=== PATIENT | male | born 1990 | race Caucasian/White ===

== ENCOUNTER 2017-04-30 11:39 | Emergency (ER) | payer MEDICAID, OTHER ==
[2017-04-30 12:29] LABS: % IMMATURE GRANULYOCYTES 0.4 % (0.0-1.1); ABSOLUTE IMMATURE GRANULOCYTES 0.06 10^3/uL (0.00-0.10); ADD DIFF? NO; ADD MORPH? NO; ADD SCAN? NO; ATYPICAL LYMPHOCYTE FLAG 0 (0-99); FRAGMENT RBC FLAG 0 (0-99); HEMATOCRIT 41.4 % (40.0-51.0); LEFT SHIFT FLG 0 (0-99); LIPEMIA HEMOLYSIS FLAG 90 (0-99); MEAN CELL HEMOGLOBIN 30.8 pg (27.9-34.1); MEAN CELL HEMOGLOBIN CONCENTR. 33.8 g/dL (32.4-36.7); MEAN CELL VOLUME 91.2 fL (81.5-99.8); MEAN PLATELET VOLUME 9.1 fL (8.7-11.7); PLATELET CLUMPS FLAG 10 (0-99); PLATELET COUNT 313 10^3/uL (150-400); RED BLOOD CELL COUNT 4.54 10^6/uL (4.40-6.38); RED CELL DISTRIBUTION WIDTH 12.7 % (11.5-15.2)
[2017-04-30 12:41] LABS: ANION GAP 15 mEq/L (8-16); CALCIUM 9.4 mg/dL (8.5-10.4); CARBON DIOXIDE 22 mEq/l (22-31); CHLORIDE 104 mEq/L (97-110); CREATININE 0.9 mg/dL (0.7-1.3); GLOMERULAR FILTRATION RATE > 60; GLUCOSE 82 mg/dL (70-100); POTASSIUM 3.6 mEq/L (3.5-5.2); SODIUM 141 mEq/L (134-144)
[2017-04-30 13:01] LABS: PHENCYCLIDINE URINE BCH < 6 ng/ml (NEGATIVE); PHENCYCLIDINE URINE BCH NEGATIVE (NEGATIVE); TETRAHYDROCANNABINOL URINE 23 ng/mL (NEGATIVE); TETRAHYDROCANNABINOL URINE NEGATIVE (NEGATIVE)
--- NOTE | 2017-04-30 16:49 | EDPHY ---
H & P Stated Complaint: M1, Hallucinations - Personal History Current Tetanus/Diphtheria Vaccine: Unsure - Medical/Surgical History Other PMH: denies Time Seen by Provider: 04/30/17 12:06 HPI/ROS: CHIEF COMPLAINT: Hallucinations, gravely disabled HISTORY OF PRESENT ILLNESS: This is a 27-year-old male who presents on a police M1 mental health hold. History is that the police have been called to evaluate the patient 3 times today. Each time they have found him somewhat confused, wandering in traffic, shortness, with no shoes, and seeming to respond to hallucinations. He was placed on a mental health hold for being gravely disabled and was brought to the emergency department. On my history the patient states that he is here only because he has blisters on his feet. He tells me that he has been incarcerated. He reports he has a piece of paper that he needs to take to the mental health department in order to have further care. His speech is quite tangential and he is not able to give a coherent history. He denies any pain except for pain in his feet. He denies a history of mental health disease. He denies medication use. He denies drug use. He tells me that the bottom of his feet hurt because there are batteries there. REVIEW OF SYSTEMS: Limited secondary to the patient's clinical condition and altered mental status. PAST MEDICAL HISTORY: Patient denies. SOCIAL HISTORY: Homeless VITAL SIGNS: see nurse's notes. GENERAL: Disheveled, alert, oriented to person and place. HEENT: Normal, no trauma. LUÍS, pupils are 5 mm and reactive. No icterus. No nystagmus. Dry mucous membranes. Neck is supple. LUNGS: Clear to auscultation bilaterally, no wheezes, rhonchi or rales. CARDIAC: Regular rate and rhythm, no rubs, murmurs or gallops. ABDOMEN: Soft, nontender, nondistended, bowel sounds normal. BACK: No CVA tenderness. No vertebral tenderness. EXTREMITIES: Soles of the feet are caked with dirt. Blisters are present on the soles of the feet. No signs of cellulitis. NEURO: Alert and oriented, grossly nonfocal SKIN: Diffuse erythroderma present on the left side of the chest and left arm. Appears to be sun burn. (Ernestina Ibrahim) Constitutional: Initial Vital Signs Temperature (C) 36.8 C 04/30/17 11:43 Heart Rate 110 H 04/30/17 11:43 Respiratory Rate 18 04/30/17 11:43 Blood Pressure 123/79 H 04/30/17 11:43 O2 Sat (%) 95 04/30/17 11:43 O2 Delivery Mode Room Air Allergies/Adverse Reactions: No Known Allergies Allergy (Unverified 02/27/10 14:22) Home Medications: Medication Instructions Recorded Wellbutrin 02/27/10 Medical Decision Making ED Course/Re-evaluation: Presenting on a please M1 hold. Patient is gravely disabled, seems to be responding to external stimuli, disheveled, homeless. He denies a prior history of mental health disorders. Patient's medical screening exam is unremarkable. He has no illicit drugs in his urinary tox screen. Patient is clear for further psychiatric evaluation. Care was assumed by Dr. Trevor Castellon at 4:30 p.m. pending psychiatric evaluation. Differential diagnoses for the patient's symptom complex was considered including but not limited to drug or alcohol abuse, primary psychiatric illness , schizophrenia, bipolar disorder, electrolyte abnormalities, head trauma.. (Ernestina Ibrahim) 1630 care assumed by me pending mental health evaluation. 1800 patient has been evaluated by [facility] environmental services manager. Patient is gravely disabled and will require placement. [address] patient signed out to Dr. Ann pending placement. No issues during my care. (Reynaldo Castellon) 7:00 a.m.- The patient has been stable throughout my shift. He is awaiting placement. The case will be signed out to Dr. Pennington at change of shift. (Catalina Ann) 7:30 a.m. patient is stable. Eating breakfast. Awaiting placement Patient has remained stable. He is awaiting placement (Edmund Pennington) Care Turn Over: Dr. Mabry at 3:00 p.m. (Edmund Pennington) - Data Points Laboratory Results: Laboratory Results 04/30/17 12:05 04/30/17 12:05 Departure - Departure Referrals: NONE *PRIMARY CARE P,. [Primary Care Provider] - As per Instructions
[2017-04-30 23:10] VITALS: RESP 16
[2017-05-01 20:44] VITALS: TEMP 98.4; O2SAT 96
[2017-05-01 21:06] VITALS: BP 130/70; PULSE 90
== END 2017-05-01 21:06 ==
DX: F29 Unspecified psychosis not due to a substance or known physiological condition (principal)
CPT/HCPCS: 80307; G0480

== ENCOUNTER 2018-12-20 14:37 | Emergency (ER) | payer MEDICAID ==
--- NOTE | 2018-12-20 14:42 | EDPHY ---
H & P Time Seen by Provider: 12/20/18 14:56 HPI/ROS: HPI CHIEF COMPLAINT: Anxiety attack HISTORY OF PRESENT ILLNESS: Patient is a 28-year-old male, history of schizoaffective disorder, bipolar disorder, presents emergency room acute anxiety attack. Patient states he became very anxious started hyperventilating , vomited once. Denies any chest pain or shortness of breath. He has since somewhat resolved, upon arrival feeling better. The patient states he has been compliant with his psychiatric medications, denies want hurt himself or anybody else. Denies drugs alcohol tobacco. Past Medical History: Schizoaffective disorder, bipolar disorder, anxiety Past Surgical History: No recent surgical history Social History: Homeless. Family History: Noncontributory ROS REVIEW OF SYSTEMS: 10 Systems were reviewed and negative with the exception of the elements mentioned in the history of present illness. Exam Constitutional anxious, triage nursing summary reviewed, vital signs reviewed, awake/alert. Eyes normal conjunctivae and sclera, EOMI, PERRLA. HENT normal inspection, atraumatic, moist mucus membranes, no epistaxis, neck supple/ no meningismus, no raccoon eyes. Respiratory clear to auscultation bilaterally, normal breath sounds, no respiratory distress, no wheezing. Cardiovascular rate normal, regular rhythm, no murmur, no edema, distal pulses normal. Gastrointestinal soft, non-tender, no rebound, no guarding, normal bowel sounds, no distension, no pulsatile mass. Genitourinary no CVA tenderness. Musculoskeletal no midline vertebral tenderness, full range of motion, no calf swelling, no tenderness of extremities, no meningismus, good pulses, neurovascularly intact. Skin pink, warm, & dry, no rash, skin atraumatic. Neurologic awake, alert and oriented x 3, AAOx3, moves all 4 extremities equally, motor intact, sensory intact, CN II-XII intact, normal cerebellar, normal vision, normal speech. Psychiatric anxious, Heme/Lymph/Immune no lymphadenopathy. Differential Diagnosis: Includes but is not limited to in a particular order acute anxiety attack, panic attack, dehydration, electrolyte disturbance Medical Decision Making: Plan for this patient IV establishment IV fluid bolus , check lithium level, basic labs, IV Ativan 0.5 mg and re-evaluate. Re-evaluation: 1702: Patient re-evaluated this time resting comfortably. He feels much better on re-evaluation after IV Ativan. Reports to me his anxiety is greatly improved. He is requesting discharge. He states he wants a cab fare back to where he came from. He also had a full meal here. He is not taking his lithium. I encouraged him to take his lithium. Refrain from smoking, or smoking methamphetamine. Source: Patient - Medical/Surgical History Other PMH: denies Constitutional: Initial Vital Signs Temperature (C) 36.8 C 12/20/18 14:45 Heart Rate 99 12/20/18 14:45 Respiratory Rate 16 12/20/18 14:45 Blood Pressure 112/75 12/20/18 14:45 O2 Sat (%) 95 12/20/18 14:45 O2 Delivery Mode Room Air Allergies/Adverse Reactions: No Known Allergies Allergy (Unverified 02/27/10 14:22) Home Medications: Medication Instructions Recorded Wellbutrin 02/27/10 Depakote 12/20/18 Brimhall Nizhoni Carbonate 12/20/18 Zyprexa 12/20/18 Medical Decision Making - Data Points Laboratory Results: Laboratory Results 12/20/18 15:10 12/20/18 15:10 12/20/18 12/20/18 12/20/18 15:45 15:10 15:10 WBC 11.17 10^3/uL H 10^3/uL (3.80-9.50) RBC 4.64 10^6/uL 10^6/uL (4.40-6.38) Hgb 14.0 g/dL g/dL (13.7-17.5) Hct 41.2 % % (40.0-51.0) MCV 88.8 fL fL (81.5-99.8) MCH 30.2 pg pg (27.9-34.1) MCHC 34.0 g/dL g/dL (32.4-36.7) RDW 12.7 % % (11.5-15.2) Plt Count 232 10^3/uL 10^3/uL (150-400) MPV 9.0 fL fL (8.7-11.7) Neut % (Auto) 79.4 % H % (39.3-74.2) Lymph % (Auto) 11.1 % L % (15.0-45.0) Mccormick % (Auto) 8.4 % % (4.5-13.0) Eos % (Auto) 0.3 % L % (0.6-7.6) Baso % (Auto) 0.4 % % (0.3-1.7) Nucleat RBC Rel Count 0.0 % % (0.0-0.2) Absolute Neuts (auto) 8.86 10^3/uL H 10^3/uL (1.70-6.50) Absolute Lymphs (auto) 1.24 10^3/uL 10^3/uL (1.00-3.00) Absolute Monos (auto) 0.94 10^3/uL H 10^3/uL (0.30-0.80) Absolute Eos (auto) 0.03 10^3/uL 10^3/uL (0.03-0.40) Absolute Basos (auto) 0.05 10^3/uL 10^3/uL (0.02-0.10) Absolute Nucleated RBC 0.00 10^3/uL 10^3/uL (0-0.01) Immature Gran % 0.4 % % (0.0-1.1) Immature Gran # 0.05 10^3/uL 10^3/uL (0.00-0.10) Sodium 138 mEq/L mEq/L (135-145) Potassium 4.2 mEq/L mEq/L (3.5-5.2) Chloride 105 mEq/L mEq/L (97-110) Carbon Dioxide 23 mEq/l mEq/l (22-31) Anion Gap 10 mEq/L mEq/L (6-14) BUN 16 mg/dL mg/dL (7-23) Creatinine 0.9 mg/dL mg/dL (0.7-1.3) Estimated GFR > 60 Glucose 134 mg/dL H mg/dL (70-100) Calcium 9.1 mg/dL mg/dL (8.5-10.4) Urine Opiates Screen NEGATIVE (NEGATIVE) Urine Barbiturates NEGATIVE (NEGATIVE) Ur Phencyclidine Scrn NEGATIVE (NEGATIVE) Ur Amphetamine Screen NEGATIVE (NEGATIVE) U Benzodiazepines Scrn NEGATIVE (NEGATIVE) Br[place]hall Nizhoni 0.3 mEq/L L mEq/L (0.6-1.2) Urine Cocaine Screen NEGATIVE (NEGATIVE) U Marijuana (THC) Screen NON-NEGATIVE H (NEGATIVE) Medications Given: Discontinued Medications Sodium Chloride (Ns) 1,000 mls @ 0 mls/hr IV EDNOW ONE; Wide Open PRN Reason: Protocol Stop: 12/20/18 14:55 Last Admin: 12/20/18 15:15 Dose: 1,000 mls Lorazepam (Ativan Injection) 0.5 mg IVP EDNOW ONE Stop: 12/20/18 14:55 Last Admin: 12/20/18 15:16 Dose: 0.5 mg Departure - Departure Disposition: Home, Routine, Self-Care Clinical Impression: Anxiety attack Condition: Good Instructions: Anxiety (ED) Referrals: Patient,NotPresent [Unknown] - As per Instructions [facility],. [Clinic] - As per Instructions
[2018-12-20] MEDS ORDERED: LORazepam 2 MG/ML INJ IVP ONE (14:54)
[2018-12-20] MEDS ORDERED: NS 1,000 ML IV ONE (14:54)
[2018-12-20 15:25] LABS: PLATELET COUNT 232 10^3/uL (150-400)
[2018-12-20 17:15] VITALS: BP 119/81
--- NOTE | 2018-12-20 19:31 | ASMTCMCOM ---
CM Note CM Note Notes: Requested to assist pt with getting to the [facility]. Spoke w/pt and he states he doesn't have a reserved bed but "is working on it." Pt states he is followed by Velma and [facility] at the [facility]. This CM called [facility] and confirmed pt is allowed to stay there tonight. CM initially set up a Medicaid cab for the pt but it did not arrive in time so that pt would make it to [facility] by 7pm, so this CM canceled the Medicaid cab and set up a cab with a voucher. Pt very pleasant and appreciative. CM available for further assistance if needed. Date Signed: 12/20/2018 07:30 PM Electronically Signed By:Renata Perkins RN
== END 2018-12-20 17:33 | disposition home or self-care (01) ==
LOC: EDBD → EDUNIT#
DX: F41.8 Other specified anxiety disorders (principal); F20.89 Other schizophrenia; E86.9 Volume depletion, unspecified; Z79.899 Other long term (current) drug therapy; Z59.0 Homelessness
CPT/HCPCS: 80305; 96374; J2060

== ENCOUNTER 2018-12-21 10:31 | Emergency (ER) | payer MEDICAID ==
--- NOTE | 2018-12-21 10:37 | EDPHY ---
H & P Source: Patient, RN/MD Exam Limitations: Intoxication - Medical/Surgical History Hx Asthma: No Hx Chronic Respiratory Disease: No Hx Diabetes: No Hx Cardiac Disease: No Hx Renal Disease: No Hx Cirrhosis: No Hx Alcoholism: No Hx HIV/AIDS: No Hx Splenectomy or Spleen Trauma: No Other PMH: denies - Social History Smoking Status: Current some day smoker Time Seen by Provider: 12/21/18 10:37 HPI/ROS: HPI: This is a 28-year-old male who presents with Chief Complaint: Marijuana intoxication, nausea Location: Body Quality: Marijuana intoxication, nausea, vomiting Duration: Unknown Signs and Symptoms: no fever,+ nausea, + vomiting, no hematemesis, no blood in stool, no abdominal bloating, no diarrhea, no back pain, no urinary symptoms, no testicular/groin pain, no indigestion, no chest pain, no shortness of breath Timing: Acute, resolved Severity: Mild Context: Patient is homeless, bipolar schizoaffective disorder [facility] for [facility] and several episodes of vomiting after marijuana use last night. Patient reports that he is compliant with his psychiatric medications. Denies wanting to hurt himself or harm others. He denies hallucinations. Patient is asking for "something to eat" upon arrival to the emergency room. He denies abdominal pain, fever, urinary symptoms, diarrhea. Patient does not remember how he arrived at the [facility]. Patient reports that his psychiatric medications make him "sleepy. "Patient is followed by Alex JIMENEZ at the [facility]. Modifying Factors: None Comment: ROS: A comprehensive 10 system review of systems is otherwise negative aside from elements mentioned in the history of present illness. MEDICAL/SURGICAL/SOCIAL HISTORY: Medical history: Bipolar schizoaffective disorder Surgical history: Denies Social history: Current every day smoker. Homeless. Family history noncontributory. CONSTITUTIONAL: Flat affect, answers questions, untidy, adult white male, awake and alert, no obvious distress HEENT: Atraumatic and normocephalic, PERRL, EOMI. Nares patent; no rhinorrhea; no nasal mucosal edema. Tympanic membranes clear. Oropharynx clear, no exudate and moist pink mucosa. Airway patent. No lymphadenopathy. No meningismus. Cardiovascular: Normal S1/S2, regular rate, regular rhythm, without murmur rub or gallop. PULMONARY/CHEST: Symmetrical and nontender. Clear to auscultation bilaterally. Good air movement. No accessory muscle usage. ABDOMEN: Soft, nondistended, nontender, no rebound, no guarding, no peritoneal signs, no masses or organomegaly. No CVAT. EXTREMITIES: 2/2 pulses, strength 5/5, no deformities, no clubbing, no cyanosis or edema. NEUROLOGICAL: no focal neuro deficits. GCS 15. SKIN: Warm and dry, no erythema. no rash. Good capillary refill. PSYCH: Good eye contact, no flight of ideas, organized thought process, fair insight and judgment, no auditory hallucinations, no visual hallucinations, no suicidal ideation with a plan, no homicidal ideation, no paranoia (Mae Packer) Constitutional: Initial Vital Signs Temperature (C) 36.8 C 12/21/18 10:35 Heart Rate 82 12/21/18 10:35 Respiratory Rate 17 12/21/18 10:35 Blood Pressure 108/60 12/21/18 10:35 O2 Sat (%) 98 12/21/18 10:35 O2 Delivery Mode Room Air Allergies/Adverse Reactions: No Known Allergies Allergy (Verified 12/21/18 10:34) Home Medications: Medication Instructions Recorded Depakote 12/20/18 Escalon Carbonate 12/20/18 Valproic Acid 12/21/18 Medical Decision Making ED Course/Re-evaluation: Signs reviewed and stable upon arrival. Will observe patient until more sober. 1 L normal saline given Will not repeat laboratory studies as complete workup performed yesterday. [place]alon level subtherapeutic. Urine drug screen positive for marijuana. Case management consult contacted the [facility] and they are willing to take patient back. 1400: Reassessed patient after 4 hr in the emergency room. Ate lunch and drank fluids without any difficulty. Patient ambulating back and forth to the restroom without difficulty. Abdomen is soft and nontender and doubt surgical process. Patient will be discharged with a cab to the [facility]. This patient was seen under the supervision of my secondary supervising physician. I evaluated care for this patient independently. (Mae Packer) The patient was evaluated and managed by the physician computer assistant. I have reviewed this chart and I agree with the findings and plan of care as documented , as indicated by my signature. I am the secondary supervising physician. ( Amada Mabry) Differential Diagnosis: Differential diagnosis includes but is not limited to major depression, anxiety disorder, schizophrenia, bipolar disorder, intoxicant use, suicidal ideation, psychosis, salima. (Mae Packer) Departure - Departure Disposition: Home, Routine, Self-Care Clinical Impression: Marijuana user, Schizoaffective disorder, bipolar type, Homelessness Condition: Good Instructions: Bipolar Disorder (ED), Cannabis Abuse (ED) Additional Instructions: Please continue to take psychiatric medications as prescribed. Follow-up at the [facility]. Referrals: [facility],. [Clinic] - As per Instructions [facility],. [Clinic] - As per Instructions [facility] [Outside] - As per Instructions
[2018-12-21 13:59] VITALS: BP 110/68
--- NOTE | 2018-12-21 14:29 | ASMTCMCOM ---
CM Note CM Note Notes: Case management asked to check in with patient regarding discharge planning and return to [facility] vs. prison. Chart reviewed, including ED report and CM note from yesterday, 12/20/18. Patient is very pleasant with a flat affect when we met. He tells me that he has been staying at [facility] for the past couple of weeks since he "got out of assisted". Patient also tells me that he goes to the [facility] for medication, etc. When asked, patient tells me that he would like to return to the [facility] ([facility]) if he is able to do so. This CM contacted Romana at and confirmed that patient is welcome to return. Cab voucher provided and patient left for [place] via [employer]. I have called Fina at [facility] and regarding patient's ED visits today and yesterday. CM available prn Date Signed: 12/21/2018 02:28 PM Electronically Signed By:Emi London RN
== END 2018-12-21 14:10 | disposition home or self-care (01) ==
LOC: EDUNIT#
DX: F12.929 Cannabis use, unspecified with intoxication, unspecified (principal); F25.0 Schizoaffective disorder, bipolar type; F17.200 Nicotine dependence, unspecified, uncomplicated; Z59.0 Homelessness